=== PATIENT | female | born 1985 | race Caucasian/White ===

== ENCOUNTER → 2019-08-29 | Outpatient (CLI) | payer OTHER | END | disposition home or self-care (01) | LOC: PRENATAL 13:19 | DX: O99.89 Other specified diseases and conditions complicating pregnancy, childbirth and the puerperium (principal); O26.859 Spotting complicating pregnancy, unspecified trimester; O36.80X0 Pregnancy with inconclusive fetal viability, not applicable or unspecified; Z3A.01 Less than 8 weeks gestation of pregnancy ==

== ENCOUNTER → 2019-12-01 | Outpatient (CLI) | payer OTHER | END | disposition home or self-care (01) | LOC: PRENATAL 11-26 08:00 | DX: O35.3XX1 Maternal care for (suspected) damage to fetus from viral disease in mother, fetus 1 (principal); O09.512 Supervision of elderly primigravida, second trimester; Z34.92 Encounter for supervision of normal pregnancy, unspecified, second trimester ==

== ENCOUNTER → 2020-02-13 | Outpatient (CLI) | payer OTHER | END | disposition home or self-care (01) | LOC: PRENATAL 14:30 | PROVIDERS: ATTEND Obstetrics & Gynecology | DX: O26.843 Uterine size-date discrepancy, third trimester (principal); O44.03 Complete placenta previa NOS or without hemorrhage, third trimester; O09.513 Supervision of elderly primigravida, third trimester ==

== ENCOUNTER 2020-04-01 03:18 | Inpatient (IN) | payer OTHER ==
[~2020-04-01] VITALS: Ht 157.5 cm; Wt 2.7 kg
[2020-04-01] MEDS ORDERED: PRENATAL TABLE1 EAC1 PO (03:20)
[2020-04-05] MEDS ORDERED: IBU800 MG PO (10:58)
[2020-04-05] MEDS ORDERED: SURFAK240 M1 PO ×2 (10:58→11:02)
[2020-04-05] MEDS ORDERED: IBUPROFEN800 MG PO (11:02)
== END 2020-04-05 12:43 | disposition home or self-care (01) | DRG 788 ==
LOC: LDR 03:18 → SURG-SUITE 03:18 → O/R 03:18 → OB/GYN 03:18 → O/R 11:29 → OB/GYN 15:13 → SURG-SUITE 18:22 → OB/GYN 04-02 20:42
PROVIDERS: ADMIT Specialist; ATTEND Specialist
PROC: 4A1HXFZ Monitoring of Products of Conception, Cardiac Rhythm, External Approach (ICD-10-PCS; 2020-04-01)
PROC: 3E033VJ Introduction of Other Hormone into Peripheral Vein, Percutaneous Approach (ICD-10-PCS; 2020-04-01)
PROC: 10D00Z1 Extraction of Products of Conception, Low, Open Approach (ICD-10-PCS; principal; 2020-04-01 12:00)
DX: O62.1 Secondary uterine inertia (principal); Z3A.37 37 weeks gestation of pregnancy; Z37.0 Single live birth; Z20.828 Contact with and (suspected) exposure to other viral communicable diseases

== ENCOUNTER 2021-04-11 14:35 | Outpatient (CLI) | payer OTHER ==
[~2021-04-11 14:35] MED LIST: IBU800 MG PO; IBUPROFEN800 MG PO; PRENATAL TABLE1 EAC1 PO; SURFAK240 M1 PO
== END 2021-04-11 15:40 | disposition home or self-care (01) ==
LOC: PRENATAL 14:35
PROVIDERS: ATTEND Obstetrics & Gynecology Maternal & Fetal Medicine
DX: O35.3XX1 Maternal care for (suspected) damage to fetus from viral disease in mother, fetus 1 (principal); O35.0XX1 Maternal care for (suspected) central nervous system malformation in fetus, fetus 1; O98.512 Other viral diseases complicating pregnancy, second trimester; O09.522 Supervision of elderly multigravida, second trimester; Z36.89 Encounter for other specified antenatal screening; Z3A.22 22 weeks gestation of pregnancy

== ENCOUNTER 2021-08-08 08:29 | Inpatient (IN) | payer OTHER ==
[~2021-08-08] VITALS: Ht 160 cm; Wt 3.6 kg
[2021-08-08] MEDS ORDERED: PRENATAL CAPLE1 EAC1 PO (09:49)
== END 2021-08-10 15:14 | disposition home or self-care (01) | DRG 788 ==
LOC: LDR 08:29 → SURG-SUITE 08:29 → OB/GYN 13:32 → SURG-SUITE 13:54
PROVIDERS: ADMIT Specialist; ATTEND Specialist
PROC: 4A1HXFZ Monitoring of Products of Conception, Cardiac Rhythm, External Approach (ICD-10-PCS; 2021-08-08)
PROC: 10D00Z1 Extraction of Products of Conception, Low, Open Approach (ICD-10-PCS; principal; 2021-08-08 15:00)
DX: O82 Encounter for cesarean delivery without indication (principal); O34.211 Maternal care for low transverse scar from previous cesarean delivery; Z37.0 Single live birth; Z3A.39 39 weeks gestation of pregnancy

== ENCOUNTER 2022-08-05 07:05 | Emergency (ER) | payer OTHER ==
[~2022-08-05] VITALS: Ht 157.5 cm; Wt 57.6 kg
[~2022-08-05 07:05] MED LIST changes: +PRENATAL CAPLE1 EAC1 PO
== END 2022-08-05 10:54 | disposition home or self-care (01) ==
LOC: ER 07:05
DX: O03.4 Incomplete spontaneous abortion without complication (principal); Z91.013 Allergy to seafood